=== PATIENT | male | born 1980 | race Two or more races ===

== ENCOUNTER 2023-09-12 13:21 | Emergency (ER) | payer OTHER ==
[~2023-09-12] VITALS: Ht 160 cm; Wt 68.0 kg
[2023-09-12 14:38] VITALS: TEMP 99.1
[2023-09-12 15:35] LABS: BASOPHILS # (AUTO) 0.1 K/uL (0.0-0.2); BASOPHILS % (AUTO) 0.8 % (0.0-2.0); HEMATOCRIT 42 % (39-51); HEMOGLOBIN 14.1 g/dL (13.5-17.5); LYMPHOCYTES # (AUTO) 1.4 K/uL (0.8-4.8); LYMPHOCYTES % (AUTO) 13.4 % (20.0-44.0); MEAN CORPUSCULAR HEMOGLOBIN 29 PG (26.0-33.0); MEAN CORPUSCULAR HGB CONC 34 g/dl (31.0-36.0); MEAN CORPUSCULAR VOLUME 85 fL (80-96); MONOCYTES # (AUTO) 0.6 K/uL (0.1-1.30); MONOCYTES % (AUTO) 5.6 % (2.0-12.0); NEUTROPHILS # (AUTO) 5.4 K/uL (1.8-8.9); NEUTROPHILS % (AUTO) 51.4 % (43.0-81.0); PLATELET COUNT (AUTO) 193 K/uL (150-450); RED BLOOD CELL COUNT(AUTO) 4.93 MIL/uL (4.5-6.0); RED CELL DISTRIBUTION WIDTH 12.8 % (11.5-15.0); WHITE BLOOD COUNT (AUTO) 10.4 K/uL (4.3-11.0)
[2023-09-12 15:36] LABS: EOSINOPHILS % (AUTO) 28.8 % (0.0-6.0)
[2023-09-12 15:41] LABS: APPEARANCE,URINE Clear (CLEAR); BILIRUBIN,URINE Negative (NEGATIVE); BLOOD, URINE Negative Ery/uL (NEGATIVE); COLOR,URINE YELLOW (YELLOW); KETONES,URINE Negative (NEGATIVE); LEUKOCYTE ESTERASE ,URINE Negative (NEGATIVE); NITRITE, URINE Negative (NEGATIVE); PROTEIN,URINE Negative (NEGATIVE); UGLUCOSE Negative (NEGATIVE)
[2023-09-12 15:44] LABS: CALCIUM, SERUM 8.9 mg/dL (8.5-10.1); CREATININE 1.1 mg/dL (0.6-1.3)
[2023-09-12 15:49] LABS: ALBUMIN 3.5 g/dL (3.4-5.0); BILIRUBIN,DIRECT 0.3 mg/dL (0.0-0.2); BILIRUBIN,TOTAL 1.1 mg/dL (0.2-1.0); TOTAL PROTEIN, SERUM 7.6 g/dL (6.4-8.2)
[2023-09-12] MEDS ORDERED: PRED50TA PO (16:15)
[2023-09-12] MEDS ORDERED: FAMO-131 PO (16:15)
[2023-09-12 16:31] VITALS: BP 120/70; O2SAT 97
[2023-09-12 22:06] LABS: ANISOCYTOSIS 1+; EOSINOPHILS % (MANUAL) 30 % (0-4); LYMPHOCYTES % (MANUAL) 8 % (16-48); MONOCYTES % (MANUAL) 8 % (0-11.0); NEUTROPHILS % (MANUAL) 54 (42-76); PLATELET ESTIMATE ADEQUATE
== END 2023-09-12 16:31 | disposition home or self-care (01) ==
LOC: ER 13:25
DX: B34.9 Viral infection, unspecified (principal); L50.9 Urticaria, unspecified
CPT/HCPCS: 36415; 80048-TC; 80076-TC; 85025-TC

== ENCOUNTER 2023-09-20 16:05 | Inpatient (IN) | payer OTHER ==
[~2023-09-20] VITALS: Ht 157.5 cm; Wt 76.2 kg
[~2023-09-20 16:05] MED LIST: FAMO-131 PO; PRED50TA PO
[2023-09-20] MEDS ORDERED: IOHEXOL-300 100 ML VIAL IV ONE (17:29)
[2023-09-20] MEDS ORDERED: CT SWABBABLE VALVE TRANS SET 1 EA INFUS.SET MC ONE (17:29)
[2023-09-20] MEDS ORDERED: IV NS 0.9% 250 ML IV ONE (17:29)
[2023-09-20 17:32] LABS: BASOPHILS # (AUTO) 0.1 K/uL (0.0-0.2); BASOPHILS % (AUTO) 0.7 % (0.0-2.0); EOSINOPHILS # (AUTO) 3.7 K/uL (0.0-0.7); EOSINOPHILS % (AUTO) 23.1 % (0.0-6.0); HEMATOCRIT 47 % (39-51); HEMOGLOBIN 15.7 g/dL (13.5-17.5); LYMPHOCYTES # (AUTO) 1.5 K/uL (0.8-4.8); LYMPHOCYTES % (AUTO) 9.7 % (20.0-44.0); MEAN CORPUSCULAR HEMOGLOBIN 29 PG (26.0-33.0); MEAN CORPUSCULAR HGB CONC 34 g/dl (31.0-36.0); MEAN CORPUSCULAR VOLUME 85 fL (80-96); MONOCYTES # (AUTO) 0.8 K/uL (0.1-1.30); MONOCYTES % (AUTO) 5.2 % (2.0-12.0); NEUTROPHILS # (AUTO) 9.7 K/uL (1.8-8.9); NEUTROPHILS % (AUTO) 61.3 % (43.0-81.0); PLATELET COUNT (AUTO) 250 K/uL (150-450); RED BLOOD CELL COUNT(AUTO) 5.52 MIL/uL (4.5-6.0); RED CELL DISTRIBUTION WIDTH 13.3 % (11.5-15.0); WHITE BLOOD COUNT (AUTO) 15.9 K/uL (4.3-11.0)
[2023-09-20 17:51] LABS: CALCIUM, SERUM 9.3 mg/dL (8.5-10.1); CREATININE 0.9 mg/dL (0.6-1.3); POTASSIUM 4.4 mmol/L (3.5-5.1)
[2023-09-20 18:02] LABS: ALBUMIN 3.8 g/dL (3.4-5.0); BILIRUBIN,DIRECT 0.6 mg/dL (0.0-0.2); BILIRUBIN,TOTAL 2.2 mg/dL (0.2-1.0); TOTAL PROTEIN, SERUM 8.7 g/dL (6.4-8.2)
[2023-09-20 18:08] LABS: LACTIC ACID 1.7 mmol/L (0.4-2.0)
[2023-09-20] MEDS ORDERED: ONDANSETRON HCL/PF 4 MG/2 ML VIAL ONE (18:10)
[2023-09-20] MEDS ORDERED: MORPHINE SULFATE INJ 4 MG/ML DISP.SYRIN ONE (18:10)
[2023-09-20] MEDS: IV NS 0.9% 1,000 ML BAG IV ONE (18:24)
[2023-09-20] MEDS: MORPHINE SULFATE INJ 2 MG/ML DISP.SYRIN IV ONE (18:25)
[2023-09-20] MEDS: PIPERACILLIN /TAZOBACTAM 3.375 G in IV D5W 50 ML IV ONE (18:26)
[2023-09-20] MEDS: ONDANSETRON HCL/PF 4 MG/2 ML VIAL IVP ONE (18:26)
[2023-09-20 18:31] LABS: APPEARANCE,URINE Clear (CLEAR); BILIRUBIN,URINE SMALL (NEGATIVE); BLOOD, URINE Negative Ery/uL (NEGATIVE); COLOR,URINE DARK YELLOW (YELLOW); KETONES,URINE Negative (NEGATIVE); LEUKOCYTE ESTERASE ,URINE Negative (NEGATIVE); NITRITE, URINE Negative (NEGATIVE); PH,URINE 7.5 (5.0-8.0); PROTEIN,URINE 30 mg/dl (NEGATIVE); UGLUCOSE Negative (NEGATIVE)
[2023-09-20 18:56] LABS: ADD URINE CULTURE NO; BACTERIA,URINE Rare /HPF (None Seen); MUCUS,URINE Moderate /LPF (None Seen); RBC,URINE 0-2 /HPF (0-2); SQUAMOUS EPITHELIAL CELL,UR Few /HPF (None Seen); URINE AMORPHOUS PHOSPHATES Moderate /HPF (None Seen); WBC,URINE 0-2 /HPF (0-3)
[2023-09-20] MEDS ORDERED: Z GUARD REMEDY 4 OZ OINT TP PRN (21:30)
[2023-09-20] MEDS ORDERED: LORAZEPAM INJ 2 MG/ML VIAL IV PRN (21:30)
[2023-09-20] MEDS ORDERED: MAG HYDROX/AL HYDROX/SIMETH 30 ML UDC PO PRN (21:30)
[2023-09-20 21:41] LABS: EOSINOPHILS % (MANUAL) 19 % (0-4); LYMPHOCYTES % (MANUAL) 17 % (16-48); MONOCYTES % (MANUAL) 7 % (0-11.0); NEUTROPHILS % (MANUAL) 57 (42-76)
[2023-09-20 21:42] LABS: ANISOCYTOSIS 1+; PLATELET ESTIMATE ADEQUATE
[2023-09-20 22:30] VITALS: BP 123/85; TEMP 99.9; O2SAT 97
[2023-09-20] MEDS: IV D5/ 0.9% NACL 1,000 ML IV PRN (22:57)
[2023-09-20 23:00] VITALS: BP 128/90; TEMP 98; O2SAT 98
[2023-09-20] MEDS: PANTOPRAZOLE 40 MG VIAL IV SCH (23:02)
[2023-09-21] MEDS: PIPERACI/TAZO 3.375GM/D5W 50ML PB IV ONE ×2 (00:01→05:57)
[2023-09-21] MEDS: ZOSYN IVPB 3.375 G in IV D5W 50ml IV SCH (00:09)
[2023-09-21] MEDS: MORPHINE SULFATE INJ 2 MG/ML DISP.SYRIN IV PRN (06:26)
[2023-09-21 07:21] LABS: CALCIUM, SERUM 7.6 mg/dL (8.5-10.1); CREATININE 0.9 mg/dL (0.6-1.3); MAGNESIUM 2.1 mg/dL (1.8-2.4); PHOSPHORUS 2.9 mg/dL (2.5-4.9)
[2023-09-21 07:48] LABS: BASOPHILS # (AUTO) 0.1 K/uL (0.0-0.2); BASOPHILS % (AUTO) 0.4 % (0.0-2.0); EOSINOPHILS # (AUTO) 6.2 K/uL (0.0-0.7); HEMATOCRIT 38 % (39-51); LYMPHOCYTES # (AUTO) 1.4 K/uL (0.8-4.8); LYMPHOCYTES % (AUTO) 7.5 % (20.0-44.0); MEAN CORPUSCULAR HEMOGLOBIN 29 PG (26.0-33.0); MEAN CORPUSCULAR HGB CONC 34 g/dl (31.0-36.0); MEAN CORPUSCULAR VOLUME 86 fL (80-96); MONOCYTES % (AUTO) 5.4 % (2.0-12.0); NEUTROPHILS # (AUTO) 9.8 K/uL (1.8-8.9); NEUTROPHILS % (AUTO) 53.3 % (43.0-81.0); PLATELET COUNT (AUTO) 193 K/uL (150-450); RED BLOOD CELL COUNT(AUTO) 4.49 MIL/uL (4.5-6.0); RED CELL DISTRIBUTION WIDTH 12.7 % (11.5-15.0); WHITE BLOOD COUNT (AUTO) 18.5 K/uL (4.3-11.0)
[2023-09-21 07:53] LABS: EOSINOPHILS % (AUTO) 33.4 % (0.0-6.0)
[2023-09-21 08:00] VITALS: BP 109/79; TEMP 98.5; O2SAT 95
[2023-09-21] MEDS ORDERED: OMEP20TA5 PO (08:13)
[2023-09-21] MEDS: ENOXAPARIN SODIUM 40 MG/0.4 ML DISP.SYRIN SQ SCH (08:56)
[2023-09-21 10:27] LABS: EOSINOPHILS % (MANUAL) 49 % (0-4); LYMPHOCYTES % (MANUAL) 7 % (16-48); MONOCYTES % (MANUAL) 3 % (0-11.0); NEUTROPHILS % (MANUAL) 41 (42-76); PLATELET ESTIMATE ADEQUATE
[2023-09-21] MEDS ORDERED: predniSONE 50 MG TABLET PO SCH (10:30)
[2023-09-21 11:02] LABS: ALBUMIN 2.7 g/dL (3.4-5.0); BILIRUBIN,DIRECT 0.5 mg/dL (0.0-0.2); BILIRUBIN,TOTAL 2.1 mg/dL (0.2-1.0); TOTAL PROTEIN, SERUM 6.6 g/dL (6.4-8.2)
[2023-09-21] MEDS ORDERED: predniSONE 20 MG TABLET PO SCH (11:30)
[2023-09-21] MEDS: PIPERACILLIN /TAZOBACTAM 3.375 G in IV D5W 50 ML IV SCH (12:08)
[2023-09-21] MEDS: HYDROCORTISONE 0.5% CREAM 28.35 GM TUBE TP SCH (12:54)
[2023-09-21 12:58] LABS: URINE SODIUM, RANDOM 225 mmol/l (40-220)
[2023-09-21] MEDS: ONDANSETRON HCL/PF 4 MG/2 ML VIAL IVP PRN (15:52)
[2023-09-21 16:00] VITALS: BP 110/90; TEMP 98.3; O2SAT 96
[2023-09-21 20:00] VITALS: BP 110/79; TEMP 99.1; O2SAT 95
[2023-09-21 21:58] VITALS: BP 110/79; TEMP 99.1; O2SAT 95
[2023-09-22 07:31] LABS: BASOPHILS # (AUTO) 0.1 K/uL (0.0-0.2); BASOPHILS % (AUTO) 0.4 % (0.0-2.0); EOSINOPHILS # (AUTO) 4.7 K/uL (0.0-0.7); HEMATOCRIT 40 % (39-51); HEMOGLOBIN 13.1 g/dL (13.5-17.5); LYMPHOCYTES # (AUTO) 1.2 K/uL (0.8-4.8); LYMPHOCYTES % (AUTO) 7.4 % (20.0-44.0); MEAN CORPUSCULAR HEMOGLOBIN 29 PG (26.0-33.0); MEAN CORPUSCULAR HGB CONC 33 g/dl (31.0-36.0); MEAN CORPUSCULAR VOLUME 86 fL (80-96); NEUTROPHILS # (AUTO) 9.6 K/uL (1.8-8.9); NEUTROPHILS % (AUTO) 57.8 % (43.0-81.0); PLATELET COUNT (AUTO) 191 K/uL (150-450); RED BLOOD CELL COUNT(AUTO) 4.59 MIL/uL (4.5-6.0); RED CELL DISTRIBUTION WIDTH 12.9 % (11.5-15.0); WHITE BLOOD COUNT (AUTO) 16.6 K/uL (4.3-11.0)
[2023-09-22 07:35] LABS: EOSINOPHILS % (AUTO) 28.4 % (0.0-6.0)
[2023-09-22 07:45] LABS: ALBUMIN 2.5 g/dL (3.4-5.0); BILIRUBIN,TOTAL 2.3 mg/dL (0.2-1.0); CREATININE 1.2 mg/dL (0.6-1.3); MAGNESIUM 2.1 mg/dL (1.8-2.4); PHOSPHORUS 2.6 mg/dL (2.5-4.9); POTASSIUM 4.4 mmol/L (3.5-5.1); TOTAL PROTEIN, SERUM 6.7 g/dL (6.4-8.2)
[2023-09-22 07:50] LABS: CALCIUM, SERUM 7.6 mg/dL (8.5-10.1)
[2023-09-22 08:00] VITALS: BP 107/81; TEMP 97; O2SAT 95
[2023-09-22 08:16] VITALS: BP 106/72; TEMP 100; O2SAT 95
[2023-09-22] MEDS ORDERED: DIATR MEGLU/DIATRIZOATE SODIUM 30 ML BOTTLE (GASTROGRAPHIN) ONE (09:12)
[2023-09-22 10:40] LABS: BAND % (MANUAL) 1 % (0.0-5.0); EOSINOPHILS % (MANUAL) 24 % (0-4); LYMPHOCYTES % (MANUAL) 7 % (16-48); MONOCYTES % (MANUAL) 15 % (0-11.0); NEUTROPHILS % (MANUAL) 53 (42-76)
[2023-09-22 10:43] LABS: PLATELET ESTIMATE ADEQUATE
[2023-09-22 16:01] VITALS: BP 112/84; TEMP 100.9; O2SAT 99
[2023-09-22 16:43] LABS: OSMOLALITY,URINE 813 mOS/kg (340-1090)
[2023-09-22 20:00] VITALS: BP 115/78; TEMP 99.1; O2SAT 98
[2023-09-22 22:00] VITALS: BP 115/78; TEMP 99.6; O2SAT 99
[2023-09-23 07:50] LABS: BASOPHILS # (AUTO) 0.1 K/uL (0.0-0.2); BASOPHILS % (AUTO) 0.5 % (0.0-2.0); EOSINOPHILS # (AUTO) 3.9 K/uL (0.0-0.7); EOSINOPHILS % (AUTO) 23.5 % (0.0-6.0); HEMATOCRIT 38 % (39-51); HEMOGLOBIN 12.9 g/dL (13.5-17.5); LYMPHOCYTES # (AUTO) 1.3 K/uL (0.8-4.8); LYMPHOCYTES % (AUTO) 7.9 % (20.0-44.0); MEAN CORPUSCULAR HEMOGLOBIN 29 PG (26.0-33.0); MEAN CORPUSCULAR HGB CONC 34 g/dl (31.0-36.0); MEAN CORPUSCULAR VOLUME 85 fL (80-96); MONOCYTES % (AUTO) 6.2 % (2.0-12.0); NEUTROPHILS # (AUTO) 10.2 K/uL (1.8-8.9); NEUTROPHILS % (AUTO) 61.9 % (43.0-81.0); PLATELET COUNT (AUTO) 178 K/uL (150-450); RED CELL DISTRIBUTION WIDTH 12.9 % (11.5-15.0); WHITE BLOOD COUNT (AUTO) 16.5 K/uL (4.3-11.0)
[2023-09-23 08:23] LABS: ALBUMIN 2.3 g/dL (3.4-5.0); BILIRUBIN,DIRECT 0.7 mg/dL (0.0-0.2); BILIRUBIN,TOTAL 2.2 mg/dL (0.2-1.0); TOTAL PROTEIN, SERUM 6.4 g/dL (6.4-8.2)
[2023-09-23 08:26] LABS: CALCIUM, SERUM 7.4 mg/dL (8.5-10.1); MAGNESIUM 2.2 mg/dL (1.8-2.4); PHOSPHORUS 2.8 mg/dL (2.5-4.9); POTASSIUM 4.1 mmol/L (3.5-5.1)
[2023-09-23 09:55] VITALS: BP_SYST 112; BP_SYST 98; BP_DIAS 57; BP_DIAS 74; TEMP 100.2; O2SAT 97
[2023-09-23 12:07] LABS: NEUTROPHILS % (MANUAL) 61 (42-76)
[2023-09-23 12:08] LABS: EOSINOPHILS % (MANUAL) 25 % (0-4); LYMPHOCYTES % (MANUAL) 7 % (16-48); MONOCYTES % (MANUAL) 7 % (0-11.0); PLATELET ESTIMATE ADEQUATE
[2023-09-23] MEDS: PIPERACILLIN /TAZOBACTAM 3.375 G in IV D5W 100 ML IV SCH (13:03)
[2023-09-23 16:00] VITALS: BP 108/69; TEMP 100.8; O2SAT 96
[2023-09-23] MEDS: ACETAMINOPHEN 650 MG/SUPP.RECT RC PRN (18:11)
[2023-09-24 07:56] LABS: BASOPHILS # (AUTO) 0.1 K/uL (0.0-0.2); BASOPHILS % (AUTO) 0.3 % (0.0-2.0); EOSINOPHILS # (AUTO) 3.5 K/uL (0.0-0.7); EOSINOPHILS % (AUTO) 17.9 % (0.0-6.0); HEMATOCRIT 40 % (39-51); HEMOGLOBIN 13.5 g/dL (13.5-17.5); LYMPHOCYTES # (AUTO) 0.9 K/uL (0.8-4.8); LYMPHOCYTES % (AUTO) 4.5 % (20.0-44.0); MEAN CORPUSCULAR HEMOGLOBIN 29 PG (26.0-33.0); MEAN CORPUSCULAR HGB CONC 34 g/dl (31.0-36.0); MEAN CORPUSCULAR VOLUME 86 fL (80-96); MONOCYTES # (AUTO) 1.1 K/uL (0.1-1.30); MONOCYTES % (AUTO) 5.9 % (2.0-12.0); NEUTROPHILS # (AUTO) 13.7 K/uL (1.8-8.9); NEUTROPHILS % (AUTO) 71.4 % (43.0-81.0); PLATELET COUNT (AUTO) 176 K/uL (150-450); RED BLOOD CELL COUNT(AUTO) 4.64 MIL/uL (4.5-6.0); RED CELL DISTRIBUTION WIDTH 12.8 % (11.5-15.0); WHITE BLOOD COUNT (AUTO) 19.2 K/uL (4.3-11.0)
[2023-09-24 07:58] LABS: CALCIUM, SERUM 7.5 mg/dL (8.5-10.1); CREATININE 1.1 mg/dL (0.6-1.3); MAGNESIUM 2.3 mg/dL (1.8-2.4); PHOSPHORUS 2.7 mg/dL (2.5-4.9); POTASSIUM 3.8 mmol/L (3.5-5.1)
[2023-09-24 08:36] VITALS: BP 110/77; TEMP 99.9; O2SAT 96
[2023-09-24 16:08] VITALS: BP 117/84; TEMP 99.3; O2SAT 98
[2023-09-24 17:30] LABS: ALBUMIN 2.3 g/dL (3.4-5.0); BILIRUBIN,DIRECT 0.7 mg/dL (0.0-0.2); BILIRUBIN,TOTAL 2.1 mg/dL (0.2-1.0); TOTAL PROTEIN, SERUM 6.5 g/dL (6.4-8.2)
[2023-09-24 20:22] VITALS: BP 116/84; TEMP 102; O2SAT 95
[2023-09-25] VITALS: TEMP 98.4; O2SAT 96
[2023-09-25 01:17] VITALS: TEMP 98.4
[2023-09-25] MEDS: KETOROLAC TROMETHAMINE INJ 30 MG/ML VIAL IM PRN (01:25)
[2023-09-25 08:00] VITALS: BP 93/68; TEMP 98.4; O2SAT 95
[2023-09-25 08:03] LABS: CALCIUM, SERUM 7.4 mg/dL (8.5-10.1); MAGNESIUM 2.3 mg/dL (1.8-2.4); PHOSPHORUS 2.2 mg/dL (2.5-4.9); POTASSIUM 3.7 mmol/L (3.5-5.1)
[2023-09-25 08:07] LABS: BASOPHILS # (AUTO) 0.2 K/uL (0.0-0.2); BASOPHILS % (AUTO) 0.9 % (0.0-2.0); HEMATOCRIT 35 % (39-51); HEMOGLOBIN 11.9 g/dL (13.5-17.5); LYMPHOCYTES # (AUTO) 0.9 K/uL (0.8-4.8); LYMPHOCYTES % (AUTO) 4.2 % (20.0-44.0); MEAN CORPUSCULAR HEMOGLOBIN 29 PG (26.0-33.0); MEAN CORPUSCULAR HGB CONC 34 g/dl (31.0-36.0); MEAN CORPUSCULAR VOLUME 85 fL (80-96); MONOCYTES % (AUTO) 4.8 % (2.0-12.0); NEUTROPHILS # (AUTO) 13.1 K/uL (1.8-8.9); NEUTROPHILS % (AUTO) 61.8 % (43.0-81.0); PLATELET COUNT (AUTO) 159 K/uL (150-450); RED BLOOD CELL COUNT(AUTO) 4.15 MIL/uL (4.5-6.0); WHITE BLOOD COUNT (AUTO) 21.1 K/uL (4.3-11.0)
[2023-09-25 08:10] LABS: EOSINOPHILS % (AUTO) 28.3 % (0.0-6.0)
[2023-09-25] MEDS: BUTALB/APAP/CAFFEINE 1 EACH TABLET PO PRN (08:21)
[2023-09-25 08:48] LABS: BILIRUBIN,DIRECT 0.8 mg/dL (0.0-0.2); BILIRUBIN,TOTAL 2.1 mg/dL (0.2-1.0); TOTAL PROTEIN, SERUM 5.9 g/dL (6.4-8.2)
[2023-09-25 10:17] LABS: BAND % (MANUAL) 2 % (0.0-5.0); BASOPHILS % (MANUAL) 0 % (0.0-2.0); EOSINOPHILS % (MANUAL) 28 % (0-4); LYMPHOCYTES % (MANUAL) 7 % (16-48); MONOCYTES % (MANUAL) 5 % (0-11.0); NEUTROPHILS % (MANUAL) 58 (42-76); PLATELET ESTIMATE ADEQUATE
[2023-09-25 16:00] VITALS: BP 110/82; TEMP 100.4; O2SAT 98
[2023-09-25] MEDS: K PHOS NEUTRAL 250 MG TABLET PO ONE (16:39)
[2023-09-25 20:00] VITALS: BP 122/93; TEMP 99.3; TEMP 99.5; O2SAT 99
[2023-09-26 07:00] VITALS: BP 118/86; TEMP 97.6; O2SAT 97
[2023-09-26 07:10] LABS: HBSAG SCREEN Negative (Negative); HEPATITIS A AB, IgM Negative (Negative); HEPATITIS B CORE AB, IgM Negative (Negative)
[2023-09-26 07:44] LABS: BASOPHILS # (AUTO) 0.1 K/uL (0.0-0.2); BASOPHILS % (AUTO) 0.3 % (0.0-2.0); EOSINOPHILS # (AUTO) 8.7 K/uL (0.0-0.7); HEMATOCRIT 34 % (39-51); HEMOGLOBIN 11.5 g/dL (13.5-17.5); LYMPHOCYTES # (AUTO) 1.2 K/uL (0.8-4.8); LYMPHOCYTES % (AUTO) 4.7 % (20.0-44.0); MEAN CORPUSCULAR HEMOGLOBIN 29 PG (26.0-33.0); MEAN CORPUSCULAR HGB CONC 34 g/dl (31.0-36.0); MEAN CORPUSCULAR VOLUME 85 fL (80-96); MONOCYTES # (AUTO) 1.3 K/uL (0.1-1.30); MONOCYTES % (AUTO) 5.1 % (2.0-12.0); NEUTROPHILS # (AUTO) 13.6 K/uL (1.8-8.9); PLATELET COUNT (AUTO) 170 K/uL (150-450); RED BLOOD CELL COUNT(AUTO) 3.93 MIL/uL (4.5-6.0); RED CELL DISTRIBUTION WIDTH 12.6 % (11.5-15.0); WHITE BLOOD COUNT (AUTO) 24.8 K/uL (4.3-11.0)
[2023-09-26 08:00] LABS: EOSINOPHILS % (AUTO) 34.9 % (0.0-6.0)
[2023-09-26 08:57] LABS: ALBUMIN 1.9 g/dL (3.4-5.0); BILIRUBIN,DIRECT 0.9 mg/dL (0.0-0.2); BILIRUBIN,TOTAL 1.9 mg/dL (0.2-1.0); TOTAL PROTEIN, SERUM 5.9 g/dL (6.4-8.2)
[2023-09-26 09:52] LABS: CALCIUM, SERUM 7.1 mg/dL (8.5-10.1); MAGNESIUM 2.1 mg/dL (1.8-2.4); PHOSPHORUS 1.6 mg/dL (2.5-4.9); POTASSIUM 3.8 mmol/L (3.5-5.1)
[2023-09-26] MEDS: K PHOS NEUTRAL 250 MG TABLET PO ONE (15:41)
[2023-09-26 16:00] VITALS: BP 119/81; TEMP 102.2; O2SAT 96
[2023-09-26 16:53] LABS: LYMPHOCYTES % (MANUAL) 15 % (16-48)
[2023-09-26 16:54] LABS: BAND % (MANUAL) 5 % (0.0-5.0); EOSINOPHILS % (MANUAL) 20 % (0-4); MONOCYTES % (MANUAL) 10 % (0-11.0); NEUTROPHILS % (MANUAL) 50 (42-76)
[2023-09-26 16:55] LABS: ANISOCYTOSIS 1+; PLATELET ESTIMATE ADEQUATE
[2023-09-27 06:58] LABS: BASOPHILS # (AUTO) 0.1 K/uL (0.0-0.2); BASOPHILS % (AUTO) 0.3 % (0.0-2.0); EOSINOPHILS # (AUTO) 10.5 K/uL (0.0-0.7); HEMATOCRIT 35 % (39-51); HEMOGLOBIN 11.5 g/dL (13.5-17.5); LYMPHOCYTES # (AUTO) 1.3 K/uL (0.8-4.8); LYMPHOCYTES % (AUTO) 4.9 % (20.0-44.0); MEAN CORPUSCULAR HEMOGLOBIN 29 PG (26.0-33.0); MEAN CORPUSCULAR HGB CONC 34 g/dl (31.0-36.0); MEAN CORPUSCULAR VOLUME 85 fL (80-96); MONOCYTES # (AUTO) 1.4 K/uL (0.1-1.30); MONOCYTES % (AUTO) 5.3 % (2.0-12.0); NEUTROPHILS # (AUTO) 13.6 K/uL (1.8-8.9); NEUTROPHILS % (AUTO) 50.7 % (43.0-81.0); PLATELET COUNT (AUTO) 192 K/uL (150-450); RED BLOOD CELL COUNT(AUTO) 4.05 MIL/uL (4.5-6.0); RED CELL DISTRIBUTION WIDTH 12.8 % (11.5-15.0); WHITE BLOOD COUNT (AUTO) 26.9 K/uL (4.3-11.0)
[2023-09-27 07:00] VITALS: BP 123/78; TEMP 100.5; O2SAT 98
[2023-09-27 07:01] LABS: EOSINOPHILS % (AUTO) 38.8 % (0.0-6.0)
[2023-09-27 07:26] LABS: CALCIUM, SERUM 7.1 mg/dL (8.5-10.1); CREATININE 0.9 mg/dL (0.6-1.3); POTASSIUM 3.5 mmol/L (3.5-5.1)
[2023-09-27 07:27] LABS: ALBUMIN 1.8 g/dL (3.4-5.0); BILIRUBIN,DIRECT 0.9 mg/dL (0.0-0.2); BILIRUBIN,TOTAL 2.1 mg/dL (0.2-1.0); MAGNESIUM 2.1 mg/dL (1.8-2.4); PHOSPHORUS 1.3 mg/dL (2.5-4.9)
[2023-09-27] MEDS: PANTOPRAZOLE 40 MG TABLET.DR PO SCH (08:18)
[2023-09-27] MEDS: POTASSIUM PHOSPHATE MM 7.5 MMOL in IV NS 0.9% 100 ML IV SCH (09:42)
[2023-09-27 12:01] LABS: BASOPHILS % (MANUAL) 0 % (0.0-2.0); EOSINOPHILS % (MANUAL) 37 % (0-4); LYMPHOCYTES % (MANUAL) 10 % (16-48); MONOCYTES % (MANUAL) 4 % (0-11.0); NEUTROPHILS % (MANUAL) 49 (42-76); PLATELET ESTIMATE ADEQUATE
[2023-09-27 15:40] LABS: AMYLASE 30 U/L (25-115); LIPASE 33 U/L (16-77)
[2023-09-27 16:00] VITALS: BP 131/90; TEMP 99.2; O2SAT 98
[2023-09-27] MEDS ORDERED: DIATR MEGLU/DIATRIZOATE SODIUM 30 ML BOTTLE (GASTROGRAPHIN) ONE (18:47)
[2023-09-27 20:00] VITALS: BP 119/91; TEMP 102.5; O2SAT 98
[2023-09-27] MEDS ORDERED: IOHEXOL-300 100 ML VIAL IV ONE (20:57)
[2023-09-27] MEDS ORDERED: CT SWABBABLE VALVE TRANS SET 1 EA INFUS.SET MC ONE (20:57)
[2023-09-27] MEDS ORDERED: IV NS 0.9% 250 ML IV ONE (20:58)
[2023-09-28] VITALS: TEMP 99.5
[2023-09-28 07:38] LABS: CREATININE 0.9 mg/dL (0.6-1.3); MAGNESIUM 2.3 mg/dL (1.8-2.4); PHOSPHORUS 1.8 mg/dL (2.5-4.9); POTASSIUM 3.6 mmol/L (3.5-5.1)
[2023-09-28 08:00] VITALS: BP 113/80; TEMP 99.9; O2SAT 97
[2023-09-28 08:01] LABS: BASOPHILS # (AUTO) 0.1 K/uL (0.0-0.2); BASOPHILS % (AUTO) 0.4 % (0.0-2.0); EOSINOPHILS # (AUTO) 11.6 K/uL (0.0-0.7); HEMATOCRIT 35 % (39-51); HEMOGLOBIN 11.6 g/dL (13.5-17.5); LYMPHOCYTES # (AUTO) 1.5 K/uL (0.8-4.8); LYMPHOCYTES % (AUTO) 5.9 % (20.0-44.0); MEAN CORPUSCULAR HEMOGLOBIN 29 PG (26.0-33.0); MEAN CORPUSCULAR HGB CONC 33 g/dl (31.0-36.0); MEAN CORPUSCULAR VOLUME 86 fL (80-96); MONOCYTES % (AUTO) 7.7 % (2.0-12.0); NEUTROPHILS # (AUTO) 10.8 K/uL (1.8-8.9); NEUTROPHILS % (AUTO) 41.4 % (43.0-81.0); PLATELET COUNT (AUTO) 202 K/uL (150-450); RED BLOOD CELL COUNT(AUTO) 4.04 MIL/uL (4.5-6.0); RED CELL DISTRIBUTION WIDTH 13.2 % (11.5-15.0); WHITE BLOOD COUNT (AUTO) 26.1 K/uL (4.3-11.0)
[2023-09-28 08:22] LABS: EOSINOPHILS % (AUTO) 44.6 % (0.0-6.0)
[2023-09-28 10:50] LABS: MONOTEST POSITIVE (NEGATIVE)
[2023-09-28] MEDS: POTASSIUM PHOSPHATE MM 7.5 MMOL in IV NS 0.9% 100 ML IV SCH (10:59)
[2023-09-28 12:56] LABS: LYMPHOCYTES % (MANUAL) 10 % (16-48); NEUTROPHILS % (MANUAL) 44 (42-76)
[2023-09-28 12:57] LABS: EOSINOPHILS % (MANUAL) 40 % (0-4); MONOCYTES % (MANUAL) 6 % (0-11.0); PLATELET ESTIMATE ADEQUATE
[2023-09-28 16:00] VITALS: BP 121/99; TEMP 99.3; O2SAT 98
[2023-09-28 20:00] VITALS: BP 117/93; TEMP 102; O2SAT 98
[2023-09-28] MEDS: CEFEPIME 1 GM in IV D5W 50 ML IV SCH (21:27)
[2023-09-29 05:28] VITALS: TEMP 99.3
[2023-09-29 06:35] LABS: BASOPHILS # (AUTO) 0.4 K/uL (0.0-0.2); BASOPHILS % (AUTO) 1.6 % (0.0-2.0); EOSINOPHILS # (AUTO) 12.3 K/uL (0.0-0.7); HEMATOCRIT 34 % (39-51); HEMOGLOBIN 11.2 g/dL (13.5-17.5); LYMPHOCYTES # (AUTO) 1.2 K/uL (0.8-4.8); LYMPHOCYTES % (AUTO) 4.7 % (20.0-44.0); MEAN CORPUSCULAR HEMOGLOBIN 28 PG (26.0-33.0); MEAN CORPUSCULAR HGB CONC 33 g/dl (31.0-36.0); MEAN CORPUSCULAR VOLUME 86 fL (80-96); MONOCYTES # (AUTO) 0.9 K/uL (0.1-1.30); MONOCYTES % (AUTO) 3.4 % (2.0-12.0); NEUTROPHILS # (AUTO) 10.5 K/uL (1.8-8.9); NEUTROPHILS % (AUTO) 41.5 % (43.0-81.0); PLATELET COUNT (AUTO) 202 K/uL (150-450); RED BLOOD CELL COUNT(AUTO) 3.95 MIL/uL (4.5-6.0); RED CELL DISTRIBUTION WIDTH 13.4 % (11.5-15.0); WHITE BLOOD COUNT (AUTO) 25.2 K/uL (4.3-11.0)
[2023-09-29 06:39] LABS: EOSINOPHILS % (AUTO) 48.8 % (0.0-6.0)
[2023-09-29 07:10] LABS: ALBUMIN 1.8 g/dL (3.4-5.0); BILIRUBIN,DIRECT 0.7 mg/dL (0.0-0.2); BILIRUBIN,TOTAL 1.6 mg/dL (0.2-1.0); CALCIUM, SERUM 7.8 mg/dL (8.5-10.1); CREATININE 0.8 mg/dL (0.6-1.3); MAGNESIUM 2.2 mg/dL (1.8-2.4); POTASSIUM 3.8 mmol/L (3.5-5.1); TOTAL PROTEIN, SERUM 6.6 g/dL (6.4-8.2)
[2023-09-29 08:00] VITALS: BP 121/87; TEMP 98.6; O2SAT 98
[2023-09-29 08:02] LABS: EOSINOPHILS % (MANUAL) 55 % (0-4); LYMPHOCYTES % (MANUAL) 6 % (16-48); MONOCYTES % (MANUAL) 3 % (0-11.0); NEUTROPHILS % (MANUAL) 36 (42-76); PLATELET ESTIMATE ADEQUATE
[2023-09-29] MEDS: POTASSIUM PHOSPHATE MM 5 MMOL in IV NS 0.9% 100 ML IV SCH (08:24)
[2023-09-29] MEDS: ACETAMINOPHEN ES 500 MG TABLET PO PRN (10:57)
[2023-09-29 15:08] LABS: HIV-1 p24 ANTIGEN NON REACTIVE (NONREACTIVE); HIV-1/2 ANTIBODY NON REACTIVE (NONREACTIVE)
[2023-09-29 16:00] VITALS: BP 120/92; TEMP 97.8; O2SAT 100
[2023-09-29] MEDS: ENSURE CLEAR 237 ML LIQUID (MIX BERRY) PO SCH (16:17)
[2023-09-29] MEDS: K PHOS NEUTRAL 250 MG TABLET PO ONE (16:17)
[2023-09-29 20:00] VITALS: BP 114/86; TEMP 99.3; O2SAT 99
[2023-09-30 07:00] VITALS: BP 103/78; TEMP 97.9; O2SAT 98
[2023-09-30 07:52] LABS: BASOPHILS # (AUTO) 0.1 K/uL (0.0-0.2); BASOPHILS % (AUTO) 0.5 % (0.0-2.0); EOSINOPHILS # (AUTO) 13.1 K/uL (0.0-0.7); HEMATOCRIT 31 % (39-51); HEMOGLOBIN 10.4 g/dL (13.5-17.5); LYMPHOCYTES # (AUTO) 1.3 K/uL (0.8-4.8); MEAN CORPUSCULAR HEMOGLOBIN 28 PG (26.0-33.0); MEAN CORPUSCULAR HGB CONC 33 g/dl (31.0-36.0); MEAN CORPUSCULAR VOLUME 85 fL (80-96); MONOCYTES # (AUTO) 0.9 K/uL (0.1-1.30); MONOCYTES % (AUTO) 3.7 % (2.0-12.0); NEUTROPHILS # (AUTO) 10.3 K/uL (1.8-8.9); PLATELET COUNT (AUTO) 200 K/uL (150-450); RED BLOOD CELL COUNT(AUTO) 3.67 MIL/uL (4.5-6.0); RED CELL DISTRIBUTION WIDTH 13.5 % (11.5-15.0); WHITE BLOOD COUNT (AUTO) 25.8 K/uL (4.3-11.0)
[2023-09-30 07:53] LABS: EOSINOPHILS % (AUTO) 50.8 % (0.0-6.0)
[2023-09-30 08:30] LABS: ALBUMIN 1.7 g/dL (3.4-5.0); BILIRUBIN,DIRECT 0.6 mg/dL (0.0-0.2); BILIRUBIN,TOTAL 1.5 mg/dL (0.2-1.0); CALCIUM, SERUM 7.4 mg/dL (8.5-10.1); CREATININE 0.8 mg/dL (0.6-1.3); POTASSIUM 4.2 mmol/L (3.5-5.1); TOTAL PROTEIN, SERUM 6.6 g/dL (6.4-8.2)
[2023-09-30 09:04] LABS: EOSINOPHILS % (MANUAL) 47 % (0-4); LYMPHOCYTES % (MANUAL) 6 % (16-48); MONOCYTES % (MANUAL) 5 % (0-11.0); NEUTROPHILS % (MANUAL) 42 (42-76)
[2023-09-30 09:05] LABS: PLATELET ESTIMATE ADEQUATE
[2023-09-30] MEDS: IV D5/ 0.9% NACL 1,000 ML IV SCH (10:00)
[2023-09-30 16:00] VITALS: BP 115/96; TEMP 100; O2SAT 100
[2023-09-30] MEDS: ACETAMINOPHEN ES 500 MG TABLET PO ONE (17:17)
[2023-09-30 20:00] VITALS: BP 113/83; TEMP 99.4; O2SAT 97
[2023-09-30] MEDS: IV D5/ 0.9% NACL 1,000 ML IV PRN (23:31)
[2023-10-01 07:30] VITALS: BP 111/84; TEMP 98.1; O2SAT 99
[2023-10-01 07:37] LABS: BASOPHILS # (AUTO) 0.1 K/uL (0.0-0.2); BASOPHILS % (AUTO) 0.4 % (0.0-2.0); EOSINOPHILS # (AUTO) 11.2 K/uL (0.0-0.7); HEMATOCRIT 31 % (39-51); HEMOGLOBIN 10.4 g/dL (13.5-17.5); LYMPHOCYTES # (AUTO) 1.1 K/uL (0.8-4.8); LYMPHOCYTES % (AUTO) 5.1 % (20.0-44.0); MEAN CORPUSCULAR HEMOGLOBIN 29 PG (26.0-33.0); MEAN CORPUSCULAR HGB CONC 34 g/dl (31.0-36.0); MEAN CORPUSCULAR VOLUME 86 fL (80-96); MONOCYTES # (AUTO) 0.7 K/uL (0.1-1.30); MONOCYTES % (AUTO) 3.4 % (2.0-12.0); NEUTROPHILS # (AUTO) 8.4 K/uL (1.8-8.9); PLATELET COUNT (AUTO) 205 K/uL (150-450); RED BLOOD CELL COUNT(AUTO) 3.64 MIL/uL (4.5-6.0); RED CELL DISTRIBUTION WIDTH 13.5 % (11.5-15.0); WHITE BLOOD COUNT (AUTO) 21.5 K/uL (4.3-11.0)
[2023-10-01 08:01] LABS: ALBUMIN 1.7 g/dL (3.4-5.0); BILIRUBIN,DIRECT 0.5 mg/dL (0.0-0.2); BILIRUBIN,TOTAL 1.3 mg/dL (0.2-1.0); CALCIUM, SERUM 7.8 mg/dL (8.5-10.1); CREATININE 0.9 mg/dL (0.6-1.3); POTASSIUM 4.2 mmol/L (3.5-5.1); TOTAL PROTEIN, SERUM 6.8 g/dL (6.4-8.2)
[2023-10-01 08:10] LABS: EOSINOPHILS % (AUTO) 52.1 % (0.0-6.0)
[2023-10-01 09:56] LABS: EOSINOPHILS % (MANUAL) 50 % (0-4); LYMPHOCYTES % (MANUAL) 4 % (16-48); MONOCYTES % (MANUAL) 2 % (0-11.0); NEUTROPHILS % (MANUAL) 44 (42-76); PLATELET ESTIMATE ADEQUATE
[2023-10-01 09:57] LABS: ANISOCYTOSIS 1+
[2023-10-01 16:00] VITALS: BP 105/78; TEMP 99.9; O2SAT 98
[2023-10-01 19:20] VITALS: TEMP 100.3
[2023-10-02 06:48] LABS: BASOPHILS # (AUTO) 0.1 K/uL (0.0-0.2); BASOPHILS % (AUTO) 0.6 % (0.0-2.0); EOSINOPHILS # (AUTO) 10.6 K/uL (0.0-0.7); HEMATOCRIT 35 % (39-51); HEMOGLOBIN 11.3 g/dL (13.5-17.5); LYMPHOCYTES # (AUTO) 1.4 K/uL (0.8-4.8); LYMPHOCYTES % (AUTO) 6.2 % (20.0-44.0); MEAN CORPUSCULAR HEMOGLOBIN 28 PG (26.0-33.0); MEAN CORPUSCULAR HGB CONC 33 g/dl (31.0-36.0); MEAN CORPUSCULAR VOLUME 86 fL (80-96); MONOCYTES # (AUTO) 0.5 K/uL (0.1-1.30); MONOCYTES % (AUTO) 2.3 % (2.0-12.0); NEUTROPHILS # (AUTO) 9.8 K/uL (1.8-8.9); NEUTROPHILS % (AUTO) 43.7 % (43.0-81.0); PLATELET COUNT (AUTO) 252 K/uL (150-450); RED BLOOD CELL COUNT(AUTO) 4.03 MIL/uL (4.5-6.0); RED CELL DISTRIBUTION WIDTH 13.8 % (11.5-15.0); WHITE BLOOD COUNT (AUTO) 22.5 K/uL (4.3-11.0)
[2023-10-02 06:52] LABS: EOSINOPHILS % (AUTO) 47.2 % (0.0-6.0)
[2023-10-02 07:47] LABS: CALCIUM, SERUM 7.1 mg/dL (8.5-10.1); CREATININE 0.9 mg/dL (0.6-1.3); POTASSIUM 3.8 mmol/L (3.5-5.1)
[2023-10-02 08:00] VITALS: BP 109/75; TEMP 99; O2SAT 98
[2023-10-02 08:06] LABS: ALBUMIN 1.9 g/dL (3.4-5.0); BILIRUBIN,DIRECT 0.5 mg/dL (0.0-0.2); BILIRUBIN,TOTAL 1.3 mg/dL (0.2-1.0); TOTAL PROTEIN, SERUM 7.5 g/dL (6.4-8.2)
[2023-10-02 08:27] LABS: EOSINOPHILS % (MANUAL) 40 % (0-4); LYMPHOCYTES % (MANUAL) 7 % (16-48); MONOCYTES % (MANUAL) 3 % (0-11.0); NEUTROPHILS % (MANUAL) 50 (42-76); PLATELET ESTIMATE ADEQUATE
[2023-10-02 16:00] VITALS: BP 115/80; TEMP 99.5; O2SAT 99
[2023-10-02 16:55] LABS: URINE SODIUM, RANDOM 93 mmol/l (40-220)
[2023-10-02 20:00] VITALS: BP 103/79; TEMP 99.2; O2SAT 99
[2023-10-03 07:26] LABS: BASOPHILS # (AUTO) 0.1 K/uL (0.0-0.2); BASOPHILS % (AUTO) 0.4 % (0.0-2.0); EOSINOPHILS # (AUTO) 8.3 K/uL (0.0-0.7); HEMATOCRIT 34 % (39-51); HEMOGLOBIN 11.3 g/dL (13.5-17.5); LYMPHOCYTES # (AUTO) 0.8 K/uL (0.8-4.8); LYMPHOCYTES % (AUTO) 4.8 % (20.0-44.0); MEAN CORPUSCULAR HEMOGLOBIN 28 PG (26.0-33.0); MEAN CORPUSCULAR HGB CONC 34 g/dl (31.0-36.0); MEAN CORPUSCULAR VOLUME 85 fL (80-96); MONOCYTES # (AUTO) 0.7 K/uL (0.1-1.30); MONOCYTES % (AUTO) 4.3 % (2.0-12.0); NEUTROPHILS # (AUTO) 6.4 K/uL (1.8-8.9); NEUTROPHILS % (AUTO) 39.5 % (43.0-81.0); PLATELET COUNT (AUTO) 257 K/uL (150-450); RED BLOOD CELL COUNT(AUTO) 3.96 MIL/uL (4.5-6.0); RED CELL DISTRIBUTION WIDTH 13.8 % (11.5-15.0); WHITE BLOOD COUNT (AUTO) 16.2 K/uL (4.3-11.0)
[2023-10-03 07:30] VITALS: BP 105/75; TEMP 99.1; O2SAT 94
[2023-10-03 07:48] LABS: ALBUMIN 1.8 g/dL (3.4-5.0); BILIRUBIN,DIRECT 0.5 mg/dL (0.0-0.2); BILIRUBIN,TOTAL 1.3 mg/dL (0.2-1.0); CALCIUM, SERUM 8.1 mg/dL (8.5-10.1); CREATININE 0.9 mg/dL (0.6-1.3); TOTAL PROTEIN, SERUM 7.3 g/dL (6.4-8.2)
[2023-10-03 08:53] LABS: IRON, SERUM 14 ug/dl (50-175); TOTAL IRON BINDING CAPACITY 162 ug/dl (250-450)
[2023-10-03] MEDS: DICYCLOMINE HCL 10 MG CAPSULE PO SCH (09:39)
[2023-10-03 10:40] LABS: ANISOCYTOSIS 1+; BASOPHILS % (MANUAL) 0 % (0.0-2.0); EOSINOPHILS % (MANUAL) 46 % (0-4); LYMPHOCYTES % (MANUAL) 6 % (16-48); MONOCYTES % (MANUAL) 5 % (0-11.0); NEUTROPHILS % (MANUAL) 43 (42-76); PLATELET ESTIMATE ADEQUATE
[2023-10-03 10:41] LABS: OVALOCYTES RARE
[2023-10-03 15:19] LABS: INR 1.43 (0.91-1.10); PROTHROMBIN TIME 14.8 SECS (9.2-11.1)
[2023-10-03 16:00] VITALS: BP 125/93; TEMP 99.5; O2SAT 98
[2023-10-03 16:44] LABS: THYROID STIMULATING HORMONE 2.118 uIU/mL (0.358-3.74)
[2023-10-03 20:00] VITALS: BP 107/84; TEMP 99.9; O2SAT 98
[2023-10-03 20:14] LABS: OSMOLALITY,URINE 544 mOS/kg (340-1090)
[2023-10-03 21:00] VITALS: TEMP 98.6
[2023-10-03 21:49] LABS: OCCULT BLOOD STOOL NEGATIVE (NEGATIVE)
[2023-10-04 02:08] VITALS: TEMP 99.3
[2023-10-04 06:50] VITALS: TEMP 98.5
[2023-10-04 07:11] LABS: IMMUNOGLOBULIN A, SERUM 629 mg/dL (90-386); IMMUNOGLOBULIN G, SERUM 1928 mg/dL (603-1613); IMMUNOGLOBULIN M, SERUM 401 mg/dL (20-172)
[2023-10-04 07:30] VITALS: BP 108/77; TEMP 98.1; O2SAT 99
[2023-10-04 07:32] LABS: D-DIMER 2.03 mg/L(FEU (0.17-0.50); INR 1.43 (0.91-1.10); PARTIAL THROMBOPLASTIN TIME 36.3 SEC (24.3-34.3); PROTHROMBIN TIME 14.8 SECS (9.2-11.1)
[2023-10-04 08:19] LABS: BASOPHILS # (AUTO) 0.1 K/uL (0.0-0.2); BASOPHILS % (AUTO) 0.7 % (0.0-2.0); EOSINOPHILS # (AUTO) 9.3 K/uL (0.0-0.7); HEMATOCRIT 35 % (39-51); HEMOGLOBIN 11.6 g/dL (13.5-17.5); LYMPHOCYTES # (AUTO) 1.2 K/uL (0.8-4.8); MEAN CORPUSCULAR HEMOGLOBIN 28 PG (26.0-33.0); MEAN CORPUSCULAR HGB CONC 33 g/dl (31.0-36.0); MEAN CORPUSCULAR VOLUME 86 fL (80-96); MONOCYTES # (AUTO) 0.7 K/uL (0.1-1.30); MONOCYTES % (AUTO) 3.8 % (2.0-12.0); NEUTROPHILS # (AUTO) 5.8 K/uL (1.8-8.9); PLATELET COUNT (AUTO) 295 K/uL (150-450); RED CELL DISTRIBUTION WIDTH 13.6 % (11.5-15.0); WHITE BLOOD COUNT (AUTO) 17.1 K/uL (4.3-11.0)
[2023-10-04 08:21] LABS: EOSINOPHILS % (AUTO) 54.5 % (0.0-6.0)
[2023-10-04 08:39] LABS: BILIRUBIN,TOTAL 1.2 mg/dL (0.2-1.0); CALCIUM, SERUM 8.3 mg/dL (8.5-10.1); CREATININE 0.9 mg/dL (0.6-1.3); POTASSIUM 4.2 mmol/L (3.5-5.1); TOTAL PROTEIN, SERUM 7.7 g/dL (6.4-8.2)
[2023-10-04] MEDS ORDERED: DICY10CA37 PO (09:56)
[2023-10-04 10:12] LABS: FOLIC ACID 6.1 ng/mL (>3.0)
[2023-10-04 11:07] LABS: FREE KAPPA LT CHAINS SERUM 83.6 mg/L (3.3-19.4); FREE LAMBDA LT CHAIN SERUM 82.1 mg/L (5.7-26.3); KAPPA/LAMBDA RATIO SERUM 1.02 (0.26-1.65)
[2023-10-04] MEDS ORDERED: BUTA1CAP46 PO (11:25)
[2023-10-04 15:06] LABS: BAND % (MANUAL) 2 % (0.0-5.0); EOSINOPHILS % (MANUAL) 50 % (0-4); LYMPHOCYTES % (MANUAL) 9 % (16-48); MONOCYTES % (MANUAL) 5 % (0-11.0); NEUTROPHILS % (MANUAL) 34 (42-76)
[2023-10-04 15:07] LABS: PLATELET ESTIMATE ADEQUATE
[2023-10-04 16:10] LABS: *SPE A/G RATIO 0.5 (0.7-1.7); *SPE ALBUMIN 2.2 g/dL (2.9-4.4); *SPE ALPHA-1-GLOBULIN 0.5 g/dL (0.0-0.4); *SPE ALPHA-2-GLOBULIN 0.7 g/dL (0.4-1.0); *SPE BETA GLOBULIN 1.1 g/dL (0.7-1.3); *SPE GLOBULIN, TOTAL 4.7 g/dL (2.2-3.9); *SPE M-SPIKE Not Observed g/dL (Not Observed); *SPE PROTEIN TOTAL 6.9 g/dL (6.0-8.5); *SPEGAMMA GLOBULIN 2.3 g/dL (0.4-1.8)
[2023-10-05 09:08] LABS: *EBV AB VCA, IgM <36.0 U/mL (0.0-35.9)
== END 2023-10-04 14:35 | disposition home or self-care (01) | DRG 720 ==
LOC: ER 16:09 → MED 21:30
PROVIDERS: ADMIT Nurse Practitioner Acute Care; ATTEND Internal Medicine
DX: A41.9 Sepsis, unspecified organism (principal); D72.10 Eosinophilia, unspecified; R18.8 Other ascites; E22.2 Syndrome of inappropriate secretion of antidiuretic hormone; E88.09 Other disorders of plasma-protein metabolism, not elsewhere classified; R16.2 Hepatomegaly with splenomegaly, not elsewhere classified; K76.0 Fatty (change of) liver, not elsewhere classified; E86.1 Hypovolemia; D64.9 Anemia, unspecified; G43.909 Migraine, unspecified, not intractable, without status migrainosus; B27.00 Gammaherpesviral mononucleosis without complication; E80.6 Other disorders of bilirubin metabolism; R74.01 Elevation of levels of liver transaminase levels; K29.70 Gastritis, unspecified, without bleeding; R74.8 Abnormal levels of other serum enzymes; K27.9 Peptic ulcer, site unspecified, unspecified as acute or chronic, without hemorrhage or perforation; K82.8 Other specified diseases of gallbladder; K29.80 Duodenitis without bleeding
CPT/HCPCS: 36415; 70450-TC; 71045-TC; 74181-TC; 76705-TC; 78226; 80048-TC; 80053-TC; 80076-TC; 81001; 82150-TC; 82272-TC; 82607-TC; 82728-TC; 82784; 83540-TC; 83605-TC; 83615-TC; 83690-TC; 83735-TC; 83935-TC; 84100-TC; 84155; 84165; 84300-TC; 84443-TC; 85025-TC; 85385-TC; 85396; 85610-TC; 85730-TC; 86308-TC; 86334; 86664; 87040-TC; 87081-TC; 87086-TC; 87798; 87806; 93307-TC; A4223; A9537; C9113; G0378; J0692; J1650; J1885; J2270; J2405; J2543; J3490; J7030; J7042; J7050; J7060; Q9963; Q9967

== ENCOUNTER 2023-12-11 12:51 | Emergency (ER) | payer OTHER ==
[~2023-12-11] VITALS: Ht 160 cm; Wt 63.5 kg
[~2023-12-11 12:51] MED LIST changes: +DICY10CA37 PO; -FAMO-131 PO; +OMEP20TA5 PO; -PRED50TA PO
[2023-12-11 13:05] VITALS: TEMP 98.1
--- NOTE | 2023-12-11 13:10 | NUR ---
dilia ESTEVEZ self with daughter, patient [place] speaker was c/o body ache specialy headacke 6/10 per pain scale, runing temperature 100.4 F almost 4 days. patient has rashes, on right palm and under the foot. ER MD with the patient. labs are taken. inserted iv access.
[2023-12-11] MEDS: IV NS 0.9% 1,000 ML BAG IV ONE ×2 (13:36→14:51)
[2023-12-11 13:37] LABS: BASOPHILS # (AUTO) 0.1 K/uL (0.0-0.2); BASOPHILS % (AUTO) 0.5 % (0.0-2.0); EOSINOPHILS # (AUTO) 15.4 K/uL (0.0-0.7); HEMATOCRIT 44 % (39-51); HEMOGLOBIN 14.9 g/dL (13.5-17.5); LYMPHOCYTES # (AUTO) 2.6 K/uL (0.8-4.8); LYMPHOCYTES % (AUTO) 11.1 % (20.0-44.0); MEAN CORPUSCULAR HEMOGLOBIN 28 PG (26.0-33.0); MEAN CORPUSCULAR HGB CONC 34 g/dl (31.0-36.0); MEAN CORPUSCULAR VOLUME 82 fL (80-96); MONOCYTES # (AUTO) 0.6 K/uL (0.1-1.30); MONOCYTES % (AUTO) 2.6 % (2.0-12.0); NEUTROPHILS # (AUTO) 4.9 K/uL (1.8-8.9); NEUTROPHILS % (AUTO) 20.5 % (43.0-81.0); PLATELET COUNT (AUTO) 184 K/uL (150-450); RED BLOOD CELL COUNT(AUTO) 5.39 MIL/uL (4.5-6.0); RED CELL DISTRIBUTION WIDTH 16.2 % (11.5-15.0); WHITE BLOOD COUNT (AUTO) 23.6 K/uL (4.3-11.0)
[2023-12-11 13:38] LABS: CALCIUM, SERUM 9.8 mg/dL (8.5-10.1); CREATININE 1.2 mg/dL (0.6-1.3); EOSINOPHILS % (AUTO) 65.3 % (0.0-6.0); POTASSIUM 4.2 mmol/L (3.5-5.1)
[2023-12-11 13:43] LABS: ALBUMIN 3.4 g/dL (3.4-5.0); BILIRUBIN,DIRECT 0.2 mg/dL (0.0-0.2); TOTAL PROTEIN, SERUM 9.3 g/dL (6.4-8.2)
[2023-12-11 13:46] LABS: LACTIC ACID 1.3 mmol/L (0.4-2.0)
[2023-12-11 14:36] LABS: APPEARANCE,URINE Clear (CLEAR); BILIRUBIN,URINE NEGATIVE (NEGATIVE); BLOOD, URINE NEGATIVE Ery/uL (NEGATIVE); COLOR,URINE YELLOW (YELLOW); KETONES,URINE NEGATIVE (NEGATIVE); LEUKOCYTE ESTERASE ,URINE NEGATIVE (NEGATIVE); NITRITE, URINE NEGATIVE (NEGATIVE); PROTEIN,URINE NEGATIVE (NEGATIVE); UGLUCOSE NEGATIVE (NEGATIVE); UROBILINOGEN,URINE 0.2 EU/dL (0.2)
[2023-12-11] MEDS: VANCOMYCIN 1 GM in IV D5W 250 ML IV ONE (14:51)
[2023-12-11] MEDS: CEFEPIME 1 GM in IV D5W 50 ML IV ONE (14:51)
--- NOTE | 2023-12-11 15:13 | NUR ---
[employer] SUBMITTED ADMIT: SEPSIS, STABLE, MED SURG
[2023-12-11 15:20] LABS: MONOTEST POSITIVE (NEGATIVE)
[2023-12-11] MEDS ORDERED: DICY10CA13 PO (15:28)
[2023-12-11] MEDS ORDERED: IBUP-1955 PO (15:28)
[2023-12-11] MEDS ORDERED: DOXE25CA3 PO (15:28)
[2023-12-11] MEDS ORDERED: BUTA1CAP43 PO (15:28)
[2023-12-11] MEDS ORDERED: PANT40TA2 PO (15:28)
[2023-12-11 15:36] LABS: EOSINOPHILS % (MANUAL) 60 % (0-4); LYMPHOCYTES % (MANUAL) 16 % (16-48); MONOCYTES % (MANUAL) 2 % (0-11.0); NEUTROPHILS % (MANUAL) 22 (42-76)
[2023-12-11 15:37] LABS: BASOPHILS % (MANUAL) 0 % (0.0-2.0); PLATELET ESTIMATE ADEQUATE
--- NOTE | 2023-12-11 15:50 | NUR ---
Get call from [facility], Patient going to be transfer [facility] because of insurance , excepting MD is Dr Wheeler, phone# [phone]. Given ER Md to call.
--- NOTE | 2023-12-11 17:14 | NUR ---
DR. ROSAS ON THE PHONE WITH DR. WILLIS FOR PEER TO PEER.
--- NOTE | 2023-12-11 19:44 | NUR ---
correctional case manager was upadated with clinicals and vital signs. he made aware of the tachycardia and a tele bed was requested.
[2023-12-11] MEDS: KETOROLAC TROMETHAMINE 15 MG/ML VIAL IM ONE (19:49)
[2023-12-11] MEDS ORDERED: KETOROLAC TROMETHAMINE 15 MG/ML VIAL ONE (19:49)
--- NOTE | 2023-12-11 20:24 | NUR ---
DR ROSAS SPOKE TO DR SEN AT [facility] AND UPDATED HIM. HE ACCEPTED THE PATIENT FOR TELE LEVEL OF CARE.
--- NOTE | 2023-12-11 21:40 | NUR ---
PT GOT ACCEPTED AT [facility] GOING TO 619-1 TELE BED # FOR REPORT: [phone] [facility] ETA: 2300 ACCEPTING MD: DR SEN
--- NOTE | 2023-12-11 22:20 | NUR ---
REPORT GIVEN TO JULIEN ECKERT AT [facility]
--- NOTE | 2023-12-11 22:42 | NUR ---
[facility] eta is midnight
[2023-12-11 23:01] VITALS: BP 121/98; O2SAT 96
--- NOTE | 2023-12-11 23:37 | NUR ---
[facility] AT BEDSIDE TO TAKE PATIENT TO [facility]
--- NOTE | 2023-12-11 23:43 | NUR ---
PT WAS TRANSFERRED TO [facility] UNDER ACLS
--- NOTE | 2023-12-21 10:13 | NUR ---
late entery sefapine 1g started @1451 and end time was 1521.
== END 2023-12-11 23:45 | disposition short-term general hospital (02) ==
LOC: ER 12:55
DX: A41.9 Sepsis, unspecified organism (principal); R59.1 Generalized enlarged lymph nodes; D72.10 Eosinophilia, unspecified; Z20.822 Contact with and (suspected) exposure to COVID-19; Z79.899 Other long term (current) drug therapy
CPT/HCPCS: 99291; 96365; 71045; 96361; 96366; 87426; 87804 ×2; 96368; 93005; 85025; 80048; 87040 ×2; 87086; 83605; 80076; 86308; 81003; 36415; 87880; 96372; 85007; J3370; J7060; J7030; J0692; J1885; A4223 ×2; 86403-TC

== ENCOUNTER 2024-02-06 22:14 | Emergency (ER) | payer OTHER ==
[~2024-02-06] VITALS: Ht 172.7 cm; Wt 72.6 kg
[~2024-02-06 22:14] MED LIST changes: +BUTA1CAP43 PO; +DICY10CA13 PO; -DICY10CA37 PO; +DOXE25CA3 PO; +IBUP-1955 PO; -OMEP20TA5 PO; +PANT40TA2 PO
[2024-02-06] MEDS: IV NS 0.9% 1,000 ML BAG IV ONE (22:46)
[2024-02-06] MEDS ORDERED: ACETAMINOPHEN ES 500 MG TABLET ONE (22:50)
[2024-02-06] MEDS ORDERED: VANCOMYCIN 1 GM /D5W 250 ML PB IV ONE (22:50)
[2024-02-06] MEDS ORDERED: CEFEPIME 1 GM VIAL ONE (22:50)
[2024-02-06 22:57] LABS: BASOPHILS # (AUTO) 0.1 K/uL (0.0-0.2); LYMPHOCYTES # (AUTO) 1.4 K/uL (0.8-4.8); MONOCYTES # (AUTO) 0.4 K/uL (0.1-1.30); RED CELL DISTRIBUTION WIDTH 15.6 % (11.5-15.0); WHITE BLOOD COUNT (AUTO) 11.3 K/uL (4.3-11.0)
[2024-02-06 23:02] LABS: BASOPHILS % (AUTO) 0.6 % (0.0-2.0); EOSINOPHILS # (AUTO) 3.5 K/uL (0.0-0.7); HEMATOCRIT 41 % (39-51); LYMPHOCYTES % (AUTO) 12.2 % (20.0-44.0); MEAN CORPUSCULAR HEMOGLOBIN 28 PG (26.0-33.0); MEAN CORPUSCULAR HGB CONC 34 g/dl (31.0-36.0); MEAN CORPUSCULAR VOLUME 82 fL (80-96); MONOCYTES % (AUTO) 3.3 % (2.0-12.0); NEUTROPHILS % (AUTO) 53.2 % (43.0-81.0); PLATELET COUNT (AUTO) 151 K/uL (150-450); RED BLOOD CELL COUNT(AUTO) 5.01 MIL/uL (4.5-6.0)
[2024-02-06 23:05] LABS: EOSINOPHILS % (AUTO) 30.7 % (0.0-6.0)
[2024-02-06] MEDS: CEFEPIME 1 GM in IV D5W 50 ML IV ONE (23:07)
[2024-02-06] MEDS: VANCOMYCIN 1 GM in IV D5W 250 ML IV ONE (23:07)
[2024-02-06 23:09] LABS: APPEARANCE,URINE CLEAR (CLEAR); BILIRUBIN,URINE 2+ (NEGATIVE); BLOOD, URINE NEGATIVE Ery/uL (NEGATIVE); COLOR,URINE YELLOW (YELLOW); KETONES,URINE NEGATIVE (NEGATIVE); LEUKOCYTE ESTERASE ,URINE NEGATIVE (NEGATIVE); NITRITE, URINE NEGATIVE (NEGATIVE); PROTEIN,URINE 1+ mg/dl (NEGATIVE); UGLUCOSE NEGATIVE (NEGATIVE)
[2024-02-06 23:09] LABS: INR 1.31 (0.91-1.10); PARTIAL THROMBOPLASTIN TIME 28.8 SEC (24.3-34.3); PROTHROMBIN TIME 13.6 SECS (9.2-11.1)
[2024-02-06] MEDS: ACETAMINOPHEN ES 500 MG TABLET PO ONE (23:11)
[2024-02-06 23:12] LABS: ALANINE AMINOTRANSFERASE 56 U/L (12-78); ALBUMIN 2.9 g/dL (3.4-5.0); ALKALINE PHOSPHATASE 169 U/L (46-116); ASPARTATE AMINOTRANSFERASE 24 U/L (15-37); BILIRUBIN,DIRECT 0.3 mg/dL (0.0-0.2); BILIRUBIN,TOTAL 1.8 mg/dL (0.2-1.0); CALCIUM, SERUM 8.4 mg/dL (8.5-10.1); CARBON DIOXIDE 31 mmol/L (21-32); CHLORIDE 97 mmol/L (98-107); CREATININE 1.1 mg/dL (0.6-1.3); GLUCOSE 107 mg/dL (74-106); POTASSIUM 3.8 mmol/L (3.5-5.1); SODIUM SERUM 132 mmol/L (136-145); TOTAL PROTEIN, SERUM 7.4 g/dL (6.4-8.2); UREA NITROGEN, BLOOD 6 mg/dL (7-18)
[2024-02-06 23:14] LABS: ADD URINE CULTURE NO; BACTERIA,URINE 1+ /HPF (None Seen); MUCUS,URINE Few /LPF (None Seen); RBC,URINE 0-2 /HPF (0-2); SQUAMOUS EPITHELIAL CELL,UR 0-2 /HPF (None Seen)
[2024-02-06 23:15] LABS: LACTIC ACID 1.5 mmol/L (0.4-2.0)
[2024-02-06] MEDS ORDERED: MORPHINE SULFATE INJ 4 MG/ML DISP.SYRIN ONE (23:38)
[2024-02-06 23:41] LABS: BASOPHILS % (MANUAL) 0 % (0.0-2.0); EOSINOPHILS % (MANUAL) 26 % (0-4); LYMPHOCYTES % (MANUAL) 11 % (16-48); MONOCYTES % (MANUAL) 5 % (0-11.0); NEUTROPHILS % (MANUAL) 58 (42-76); PLATELET ESTIMATE ADEQUATE
[2024-02-06] MEDS: MORPHINE SULFATE INJ 2 MG/ML DISP.SYRIN IV ONE (23:44)
[2024-02-07 04:57] VITALS: BP 91/64; TEMP 98.4; O2SAT 97
== END 2024-02-07 04:58 | disposition short-term general hospital (02) ==
LOC: ER 22:15
DX: A41.9 Sepsis, unspecified organism (principal); R59.1 Generalized enlarged lymph nodes; L50.9 Urticaria, unspecified; D72.12 Drug rash with eosinophilia and systemic symptoms syndrome; R50.9 Fever, unspecified; M54.59 Other low back pain; E78.00 Pure hypercholesterolemia, unspecified; Z87.39 Personal history of other diseases of the musculoskeletal system and connective tissue
CPT/HCPCS: 99291; 96365; 96375; 99292; 96368; 93005; 71045; 84145; 85025; 80048; 87040; 87086; 83605; 80076; 81001; 36415; 84484; 85730; 82962; 85007; J2270; J3370 ×2; J7060; J7030 ×2; A4223; J0692 ×2